=== PATIENT | male | born 1955 | race Caucasian/White ===

== ENCOUNTER 2025-03-17 21:37 | Emergency (ER) | payer OTHER ==
[~2025-03-17] VITALS: Ht 188 cm; Wt 99.8 kg
[2025-03-17 21:41] VITALS: TEMP 98.5
[2025-03-17 22:07] LABS: BASOPHILS % 0.4 % (0.0-1.0); EOSINOPHILS % 2.9 % (0.0-6.0); LYMPHOCYTES % 20.1 % (18.0-39.1); MONOCYTES % 8.7 % (4.4-11.3); NEUTROPHILS % 67.6 % (38.7-80.0); RED CELL DISTRIBUTION WIDTH 12.1 % (11.7-14.4)
[2025-03-17] MEDS: SODIUM CHLORIDE 0.9% 1000ML 1,000 ML IV STA (22:08)
[2025-03-17 22:22] LABS: INR 0.97
[2025-03-17 22:33] LABS: EST GLOMERULAR FILTRATION RATE 51 ML/MIN (>=60)
[2025-03-17] MEDS ORDERED: IOPAMIDOL 370 MG/ML 100 ML INFUS..BTL INJ ONE (22:49)
[2025-03-17] MEDS ORDERED: SODIUM CHLORIDE 0.9% 100 ML ONE (22:49)
[2025-03-17 23:55] VITALS: PULSE 78; RESP 13
[2025-03-18 00:05] VITALS: BP 116/80; PULSE 83; RESP 20; TEMP 97.8; O2SAT 99
== END 2025-03-18 00:17 | disposition home or self-care (01) ==
LOC: ER 21:47
DX: R20.2 Paresthesia of skin (principal); M54.2 Cervicalgia; I25.10 Atherosclerotic heart disease of native coronary artery without angina pectoris; E11.65 Type 2 diabetes mellitus with hyperglycemia; I10 Essential (primary) hypertension; E78.5 Hyperlipidemia, unspecified; R94.31 Abnormal electrocardiogram [ECG] [EKG]; Z95.5 Presence of coronary angioplasty implant and graft
CPT/HCPCS: 36415; 70496; 70498; 71045; 80053; 82550; 83690; 83880; 84484; 85025; 85610; 93005; 99284; J7030; J7050; Q9967